=== PATIENT | male | born 2000 | race Two or more races ===

== ENCOUNTER 2019-05-24 18:24 | Emergency (ER) | payer SELFPAY ==
[~2019-05-24] VITALS: Ht 175.3 cm; Wt 125.7 kg
[2019-05-24 20:10] LABS: Urine Bacteria MANY /hpf (None Seen); Urine Blood Negative /uL (Negative); Urine Mucus FEW (None Seen); Urine WBC 11 /hpf (0 - 3)
[2019-05-24 20:50] VITALS: BP 155/89
[2019-05-24] MEDS ORDERED: AZITHROMYCIN 250 MG TAB PO ONE (21:15)
[2019-05-24] MEDS ORDERED: cefTRIAXone SOD 1,000 MG VL IM ONE (21:15)
== END 2019-05-24 21:46 | disposition home or self-care (01) ==
LOC: ER 18:24
DX: N45.1 Epididymitis (principal); Z20.2 Contact with and (suspected) exposure to infections with a predominantly sexual mode of transmission
CPT/HCPCS: 81001; 96372; 99283; J0696